=== PATIENT | male | born 1950 | race Caucasian/White ===

== ENCOUNTER 2017-06-21 00:16 | Emergency (ER) | payer MEDICARE ==
[~2017-06-21] VITALS: Ht 188 cm; Wt 95.3 kg
[2017-06-21] MEDS ORDERED: NKM (00:27)
[2017-06-21 00:53] LABS: BASOPHILS % (AUTO) 0.9 % (0.0-2.0); LYMPHOCYTES % (AUTO) 17.3 % (20.0-45.0); MEAN CORPUSCULAR HEMOGLOBIN 29.1 PG (27.0-31.0); MEAN CORPUSCULAR HGB CONC 33.7 G/DL (32.0-36.0); MEAN CORPUSCULAR VOLUME 86 FL (80-99); MEAN PLATELET VOLUME 6.5 FL (6.5-10.1); MONOCYTES % (AUTO) 6.9 % (1.0-10.0); NEUTROPHILS % (AUTO) 73.9 % (45.0-75.0); PLATELET COUNT 260 K/UL (150-450); RED BLOOD COUNT 5.58 M/UL (4.70-6.10)
[2017-06-21 01:09] VITALS: BP 148/98
--- NOTE | 2017-06-21 01:14 | Emergency Room Report ---
History of Present Illness General Chief Complaint: Syncope Source: Patient Present Illness HPI This is a pleasant 66-year-old male with a history of penile cancer undergoing chemotherapy in . Also has a history hypertension and not on medication. Patient presents with a syncopal episode with head injury. He said he did not eat much today. At one beer. He was at a concert das and was dancing for 2-3 hours. When he left he felt a little lightheaded and and dizzy. His said that he was sweaty and clammy. He then had a syncopal episode he fell and hit his head. He has abrasion to the left side of his face into his hand. Said he felt better now. No nausea no vomiting. No trauma. No chest pain. Allergies: Uncoded Allergies: chicken protein (Allergy, Unknown, 06/21/17) Patient History Past Medical History: see triage record, old chart reviewed, HTN Past Surgical History: other Pertinent Family History: none Social History: Denies: smoking Immunizations: other Reviewed Nursing Documentation: PMH: Agreed, PSxH: Agreed Nursing Documentation-PMH Hx Hypertension: Yes Review of Systems Eye: Denies: eye pain, blurred vision ENT: Denies: ear pain, nose congestion, throat swelling Respiratory: Denies: cough, shortness of breath Cardiovascular: Denies: chest pain, palpitations Gastrointestinal: Denies: abdominal pain, diarrhea, nausea, vomiting Musculoskeletal: Denies: back pain, joint pain Skin: Denies: rash Neurological: Reports: syncope, Denies: headache, numbness Endocrine: Denies: increased thirst, increased urine Hematologic/Lymphatic: Denies: easy bruising All Other Systems: negative except mentioned in HPI Physical Exam Vital Signs Date Time Temp Pulse Resp B/P (MAP) Pulse Ox O2 Delivery O2 Flow Rate FiO2 06/21/17 00:23 97.7 95 16 134/98 99 Room Air vitals normal Sp02 EP Interpretation: reviewed, normal General Appearance: well appearing, no apparent distress, alert Head: normocephalic, other - Abrasion to left cheek/face area Eyes: bilateral eye PERRL, bilateral eye EOMI ENT: hearing grossly normal, normal pharynx Neck: full range of motion, supple, no meningismus Respiratory: chest non-tender, lungs clear, normal breath sounds Cardiovascular #1: regular rate, rhythm, no murmur Gastrointestinal: normal bowel sounds, non tender, no mass, no organomegaly, no bruit, non-distended Musculoskeletal: back normal, gait/station normal, normal range of motion Psychiatric: mood/affect normal Skin: warm/dry Medical Decision Making Diagnostic Impression: Primary Impression: Syncope Qualified Codes: R55 - Syncope and collapse Additional Impressions: Head injury, acute Qualified Codes: S09.90XA - Unspecified injury of head, initial encounter Hypokalemia ER Course Patient presents with a syncope and head injury. No intracranial bleed or skull fracture. Brave better now. Differential for syncope include cardiogenic versus neurogenic. He felt better now. Said he wants to go home. I recommend outpatient will with his DrEmanuel for further testing. Patient said he had a stress test done before and was normal. Lab Results Impression labs with hypokalemia EKG Diagnostic Results Rate: normal Rhythm: NSR ST Segments: no acute changes Rhythm Strip Diag. Results Rhythm Strip Time: 01:14 EP Interpretation: yes Rate: 89 Rhythm: NSR, no PVC's, no ectopy CT/MRI/US Diagnostic Results CT/MRI/US Diagnostic Results : Imaging Test Ordered: CT head Impression read by radiologist. Negative. Last Vital Signs Date Time Temp Pulse Resp B/P (MAP) Pulse Ox O2 Delivery O2 Flow Rate FiO2 06/21/17 01:09 97.7 94 24 148/98 98 Room Air Status: improved Disposition: HOME, SELF-CARE Condition: Stable Scripts Ibuprofen* (MOTRIN*) 600 Mg Tablet 600 MG ORAL THREE TIMES A DAY, #30 TAB 0 Refills Prov: HARPREET CHAVEZ M.D. 06/21/17 Patient Instructions: Syncope Additional Instructions: Followup with your DrEmanuel in 7 days. Return if symptom worsen. HARPREET CHAVEZ M.D. Jun 21, 2017 01:14
[2017-06-21 01:22] LABS: ANION GAP 14 mmol/L (5-15); CALCIUM 9.2 MG/DL (8.5-10.1); CARBON DIOXIDE 24 MMOL/L (21-32); CHLORIDE 102 MMOL/L (98-107); CREATININE 1.7 MG/DL (0.55-1.30); GLOMERULAR FILTRATION RATE 40.3 mL/min (>60); SODIUM 140 MMOL/L (136-145)
[2017-06-21 01:44] LABS: POTASSIUM 2.7 MMOL/L (3.5-5.1)
[2017-06-21] MEDS ORDERED: IBUPROFEN600 MG ORAL (01:53)
[2017-06-21] MEDS: Bacitracin Oint UD TOPIC ONE (01:57)
[2017-06-21 02:09] VITALS: BP 154/106
--- NOTE | 2017-06-21 10:08 | Diagnostic Imaging Report ---
Indications: Trauma, status post fall Technique: Spiral acquisitions obtained through the brain. Angled axial and coronal 5 x 5 mm slices were reconstructed. Total dose length product 1323 mGycm. CTDI vol(s) 70 mGy. Dose reduction achieved using automated exposure control Comparison: None Findings: There is mild enlargement of the frontal extra axial CSF spaces. Size ventricles. There is minimal periventricular deep white matter chronic ischemic change. No acute intracranial hemorrhage or edema. No mass effect or midline shift. Intact calvarium. Visualized orbits and sinuses are unremarkable. Impression: Minimal frontal cortical age-related volume loss Periventricular deep white matter chronic ischemic changes Negative for acute intracranial bleed or mass effect graph artery [employer] The CT scanner at [facility] is accredited by the [employer] and the scans are performed using protocols designed to limit radiation exposure to as low as reasonably achievable to attain images of sufficient resolution adequate for diagnostic evaluation.
--- NOTE | 2017-06-22 18:25 | Cardiology Report ---
APPROVED REPORT EKG Measurement Heart [id number] Normal sinus rhythm Possible Left atrial enlargement Nonspecific ST and T wave abnormality Prolonged QT Abnormal ECG
== END 2017-06-21 02:08 | disposition home or self-care (01) ==
LOC: EDBD 00:16 → EMR 00:30
DX: R55 Syncope and collapse (principal); S00.81XA Abrasion of other part of head, initial encounter; W19.XXXA Unspecified fall, initial encounter; Y92.29 Other specified public building as the place of occurrence of the external cause; E87.6 Hypokalemia; Z85.49 Personal history of malignant neoplasm of other male genital organs; Z92.21 Personal history of antineoplastic chemotherapy; I10 Essential (primary) hypertension
CPT/HCPCS: 36415; 70450; 80048; 84484; 85025; 93005; 96372; 96374; 99284; J8499